=== PATIENT | male | born 1945 | race Two or more races ===

== ENCOUNTER 2017-12-12 21:41 | Inpatient (IN) | payer OTHER ==
[2017-12-12] MEDS: SODIUM CHLORIDE 0.9% 1L BAG IV* (21:58)
[2017-12-12 23:18] LABS: ADD MAN DIFF? NO
[2017-12-12 23:20] LABS: BASOPHIL # 0.1 10^3/ul (0.0-0.1); BASOPHILS % 0.5 % (0.0-2.0); EOSINOPHILS # 0.1 10^3/ul (0.0-0.5); EOSINOPHILS % 0.5 % (0.0-7.0); HEMATOCRIT 35.7 % (42.0-52.0); HEMOGLOBIN 11.7 g/dl (14.0-18.0); LYMPHOCYTES # 1.1 10^3/ul (0.8-2.9); LYMPHOCYTES % 6.4 % (15.0-51.0); MEAN CORPUSCULAR HEMOGLOBIN 27.9 pg (29.0-33.0); MEAN CORPUSCULAR HGB CONC 32.8 g/dl (32.0-37.0); MEAN PLATELET VOLUME 10.1 fl (7.4-10.4); MONOCYTE # 1.2 10^3/ul (0.3-0.9); MONOCYTES % 7.4 % (0.0-11.0); NEUTROPHIL # 13.8 10^3/ul (1.6-7.5); NEUTROPHILS % 83.6 % (39.0-77.0); PLATELET COUNT 402 10^3/UL (140-415); RED CELL DISTRIBUTION WIDTH 16.4 % (11.5-14.5)
[2017-12-12 23:20] LABS: WHITE BLOOD COUNT 16.5 10^3/ul (4.8-10.8)
[2017-12-12 23:48] LABS: ALANINE AMINOTRANSFERASE 31 IU/L (13-69); ALBUMIN 3.7 g/dl (3.3-4.9); ALBUMIN/GLOBULIN RATIO 1.08; ALKALINE PHOSPHATASE 133 IU/L (42-121); ANION GAP 14 (8-16); ASPARTATE AMINO TRANSFERASE 40 IU/L (15-46); BILIRUBIN,INDIRECT 0.1 mg/dl (0-1.1); BILIRUBIN,TOTAL 0.1 mg/dl (0.2-1.3); BLOOD UREA NITROGEN 37 mg/dl (7-20); CARBON DIOXIDE 35 mmol/L (21-31); CHLORIDE 91 mmol/L (97-110); CREATININE 1.96 mg/dl (0.61-1.24); GLUCOSE 267 mg/dl (70-220); POTASSIUM 3.3 mmol/L (3.5-5.1); SODIUM 137 mmol/L (135-144); TOTAL PROTEIN 7.1 g/dl (6.1-8.1)
[2017-12-12 23:52] LABS: INR 0.96; PARTIAL THROMBOPLASTIN TIME 31.5 Sec (25.0-35.0); PROTIME 12.9 Sec (11.9-14.9)
[2017-12-12 23:54] LABS: LACTIC ACID 2.2 mmol/L (0.5-2.0)
[2017-12-12 23:58] LABS: TROPONIN-I 0.024 ng/ml (0.00-0.12)
[2017-12-13 00:06] LABS: ADD UMIC NO; UR ASCORBIC ACID NEGATIVE (NEGATIVE); UR BILIRUBIN (Dip) NEGATIVE (NEGATIVE); UR BLOOD (Dip) NEGATIVE (NEGATIVE); UR CLARITY CLEAR (CLEAR); UR COLOR STRAW (YELLOW); UR GLUCOSE (Dip) NEGATIVE (NEGATIVE); UR KETONES (Dip) NEGATIVE (NEGATIVE); UR LEUKOCYTE ESTERASE (Dip) NEGATIVE Leu/ul (NEGATIVE); UR NITRITE (Dip) NEGATIVE (NEGATIVE); UR SPECIFIC GRAVITY (Dip) 1.006 (1.003-1.030); UR TOTAL PROTEIN (Dip) NEGATIVE (NEGATIVE); UR UROBILINOGEN (Dip) NEGATIVE (NEGATIVE)
[2017-12-13 00:55] LABS: LACTIC ACID 1.7 mmol/L (0.5-2.0)
[2017-12-13] MEDS: VANCOMYCIN 1 GM (PMX) 250 ML IVPB (00:56)
[2017-12-13] MEDS: CEFEPIME 2GM/50 ML (PMX) 50 ML IVPB (00:56)
[2017-12-13] MEDS: SOD CHLORIDE 0.9% 1,000 ML IV ×4 (02:33→22:33)
[2017-12-13] MEDS: ONDANSETRON 4 MG INJ IV ×2 (02:51→13:43)
[2017-12-13] MEDS: morphine 4 MG/ML VIAL IV (02:52)
[2017-12-13] MEDS ORDERED: NACL 0.9% 3 ML SYG IV (03:00)
[2017-12-13] MEDS ORDERED: VANCOMYCIN IV PER PHARMACY XX (03:00)
[2017-12-13] MEDS ORDERED: LORAZEPAM 2 MG INJ IV (03:00)
[2017-12-13] MEDS ORDERED: POTASSIUM CHLORIDE 50 ML IVPB (03:00)
[2017-12-13] MEDS ORDERED: ACETAMINOPHEN 325 MG TAB PO (03:00)
[2017-12-13] MEDS ORDERED: ZOLPIDEM 5 MG TAB PO (03:00)
[2017-12-13] MEDS ORDERED: GLUCOSE GEL 15 GRAM TUBE BUCCAL (04:00)
[2017-12-13] MEDS ORDERED: GLUCAGON 1 MG INJ IM (04:00)
[2017-12-13] MEDS ORDERED: GLUCOSE GEL 15 GRAM TUBE PO ×2 (04:00)
[2017-12-13] MEDS ORDERED: DEXTROSE 50% 50 ML SYRINGE IV ×2 (04:00)
[2017-12-13] MEDS: PIPER-TAZO 2.25 GM (PMX) 50 ML IVPB ×3 (04:42→19:14)
[2017-12-13] MEDS ORDERED: PIPER-TAZO 3.375 GM IV (PMX) 100 ML IVPB (06:00)
[2017-12-13] MEDS ORDERED: MEROPENEM 1 GM/50ML(PMX) 50 ML IVPB (06:00)
[2017-12-13] MEDS: VANCOMYCIN 1 GM in 250 ML IVPB (07:28)
[2017-12-13] MEDS: SOD CHLORIDE 0.9% 500 ML IV (07:28)
[2017-12-13] MEDS: INSULIN ASPART [NOVOLOG] 3 ML PEN SC ×3 (08:00→21:00)
[2017-12-13 08:33] LABS: ADD UMIC YES; UR ASCORBIC ACID NEGATIVE (NEGATIVE); UR BILIRUBIN (Dip) NEGATIVE (NEGATIVE); UR BLOOD (Dip) 1+ mg/dL (NEGATIVE); UR CLARITY CLEAR (CLEAR); UR COLOR YELLOW (YELLOW); UR GLUCOSE (Dip) 1+ mg/dL (NEGATIVE); UR KETONES (Dip) NEGATIVE (NEGATIVE); UR LEUKOCYTE ESTERASE (Dip) NEGATIVE Leu/ul (NEGATIVE); UR NITRITE (Dip) NEGATIVE (NEGATIVE); UR RBC 0 /HPF (0-5); UR SPECIFIC GRAVITY (Dip) 1.012 (1.003-1.030); UR TOTAL PROTEIN (Dip) NEGATIVE (NEGATIVE); UR UROBILINOGEN (Dip) NEGATIVE (NEGATIVE); UR WBC 3 /HPF (0-5)
[2017-12-13] MEDS: FAMOTIDINE 20 MG TAB PO (09:08)
[2017-12-13 09:13] LABS: LACTIC ACID 0.8 mmol/L (0.5-2.0)
[2017-12-13] MEDS: morphine 2 MG INJ IV ×3 (09:22→18:12)
[2017-12-13 12:18] LABS: AMPHETAMINE/METHAMPHETAMINE NEGATIVE (NEGATIVE); BARBITURATES NEGATIVE (NEGATIVE); BENZODIAZEPINES NEGATIVE (NEGATIVE)
[2017-12-13 12:19] LABS: CANNABINOIDS NEGATIVE (NEGATIVE); COCAINE NEGATIVE (NEGATIVE); OPIATES POSITIVE (NEGATIVE)
[2017-12-13] MEDS: DILTIAZEM (CD) 240 MG CAP PO (17:30)
[2017-12-13] MEDS: ISOSORBIDE MONONITRATE(SR)60 MG TAB PO (19:12)
[2017-12-13] MEDS: ALLOPURINOL 100 MG TAB PO (19:13)
[2017-12-13] MEDS: CLOPIDOGREL 75 MG TAB PO (19:13)
[2017-12-13] MEDS: FINASTERIDE 5 MG TAB PO (19:13)
[2017-12-13] MEDS: ATORVASTATIN 20 MG TAB PO (21:02)
[2017-12-13] MEDS: GABAPENTIN 300 MG CAP PO (21:02)
[2017-12-13] MEDS: KCL 30 MEQ in NS 250 ML IVPB X1 IVPB (21:02)
[2017-12-14] MEDS: PIPER-TAZO 2.25 GM (PMX) 50 ML IVPB ×4 (00:58→17:57)
[2017-12-14] MEDS: ACCU-CHEK XX (02:00)
[2017-12-14] MEDS: morphine 2 MG INJ IV ×4 (02:37→23:20)
[2017-12-14] MEDS: ONDANSETRON 4 MG INJ IV (02:38)
[2017-12-14] MEDS: SOD CHLORIDE 0.9% 1,000 ML IV ×3 (05:11→17:57)
[2017-12-14] MEDS: INSULIN ASPART [NOVOLOG] 3 ML PEN SC ×7 (07:55→20:57)
[2017-12-14] MEDS: FINASTERIDE 5 MG TAB PO (08:26)
[2017-12-14] MEDS: LOSARTAN 50 MG TAB PO (08:26)
[2017-12-14] MEDS: ALLOPURINOL 100 MG TAB PO (08:26)
[2017-12-14] MEDS: GABAPENTIN 300 MG CAP PO ×3 (08:26→20:51)
[2017-12-14] MEDS: CLOPIDOGREL 75 MG TAB PO (08:26)
[2017-12-14] MEDS: FAMOTIDINE 20 MG TAB PO (08:27)
[2017-12-14] MEDS: FUROSEMIDE 40 MG TAB PO (08:27)
[2017-12-14] MEDS: ISOSORBIDE MONONITRATE(SR)60 MG TAB PO (08:27)
[2017-12-14] MEDS: DILTIAZEM (CD) 240 MG CAP PO (08:27)
[2017-12-14] MEDS: VANCOMYCIN 1.25 GM in SOD CHLORIDE 0.9% 250 ML IVPB (08:38)
[2017-12-14 09:16] LABS: ADD MAN DIFF? NO
[2017-12-14 09:22] LABS: BASOPHIL # 0.1 10^3/ul (0.0-0.1); BASOPHILS % 0.8 % (0.0-2.0); EOSINOPHILS # 0.2 10^3/ul (0.0-0.5); EOSINOPHILS % 1.5 % (0.0-7.0); HEMATOCRIT 32.8 % (42.0-52.0); HEMOGLOBIN 10.4 g/dl (14.0-18.0); LYMPHOCYTES # 1.2 10^3/ul (0.8-2.9); MEAN CORPUSCULAR HEMOGLOBIN 27.4 pg (29.0-33.0); MEAN CORPUSCULAR HGB CONC 31.7 g/dl (32.0-37.0); MEAN CORPUSCULAR VOLUME 86.5 fl (82.0-101.0); MEAN PLATELET VOLUME 10.1 fl (7.4-10.4); MONOCYTE # 1.2 10^3/ul (0.3-0.9); MONOCYTES % 10.2 % (0.0-11.0); NEUTROPHIL # 8.5 10^3/ul (1.6-7.5); PLATELET COUNT 380 10^3/UL (140-415); RED BLOOD COUNT 3.79 10^6/ul (4.70-6.10); RED CELL DISTRIBUTION WIDTH 16.3 % (11.5-14.5)
[2017-12-14 09:22] LABS: WHITE BLOOD COUNT 11.3 10^3/ul (4.8-10.8)
[2017-12-14 09:44] LABS: ALANINE AMINOTRANSFERASE 32 IU/L (13-69); ALBUMIN 3.4 g/dl (3.3-4.9); ALBUMIN/GLOBULIN RATIO 1.06; ALKALINE PHOSPHATASE 110 IU/L (42-121); ANION GAP 12 (8-16); ASPARTATE AMINO TRANSFERASE 35 IU/L (15-46); BILIRUBIN,INDIRECT 0.2 mg/dl (0-1.1); BILIRUBIN,TOTAL 0.2 mg/dl (0.2-1.3); BLOOD UREA NITROGEN 22 mg/dl (7-20); CALCIUM 8.5 mg/dl (8.4-10.2); CARBON DIOXIDE 33 mmol/L (21-31); CHLORIDE 99 mmol/L (97-110); CHOL/HDL RATIO 3.2 RATIO; CHOLESTEROL 129 mg/dl (100-200); GLUCOSE 126 mg/dl (70-220); HDL CHOLESTEROL 40 mg/dl (31-75); LDL CHOLESTEROL,CALCULATED 67 mg/dl; MAGNESIUM 1.8 mg/dl (1.7-2.5); SODIUM 141 mmol/L (135-144); TOTAL PROTEIN 6.6 g/dl (6.1-8.1); TRIGLYCERIDES 108 mg/dl (0-149)
[2017-12-14 09:54] LABS: POTASSIUM 2.9 mmol/L (3.5-5.1)
[2017-12-14] MEDS: KCL 30 MEQ in NS 250 ML IVPB X1 IVPB (11:58)
[2017-12-14 12:00] LABS: PROSTATE SPECIFIC ANTIGEN 3.3 ng/ml (0.0-4.0)
[2017-12-14] MEDS: CHOLECALCIFEROL 1,000 UNIT TAB PO (13:33)
[2017-12-14 20:29] LABS: IMMUNOGLOBULIN A 199 mg/dl (70-400); IMMUNOGLOBULIN G 996 mg/dl (700-1600); IMMUNOGLOBULIN M 38 mg/dl (40-230)
[2017-12-14] MEDS: TERAZOSIN 1 MG CAP PO (20:51)
[2017-12-14] MEDS: ATORVASTATIN 20 MG TAB PO (20:51)
[2017-12-15] MEDS: PIPER-TAZO 2.25 GM (PMX) 50 ML IVPB ×2 (01:15→05:24)
[2017-12-15] MEDS: ACCU-CHEK XX (02:00)
[2017-12-15] MEDS: SOD CHLORIDE 0.9% 1,000 ML IV ×3 (04:33→20:00)
[2017-12-15] MEDS: morphine 2 MG INJ IV ×3 (05:11→17:48)
[2017-12-15] MEDS: INSULIN ASPART [NOVOLOG] 3 ML PEN SC ×7 (07:55→20:54)
[2017-12-15] MEDS: DILTIAZEM (CD) 240 MG CAP PO (08:14)
[2017-12-15] MEDS: LOSARTAN 50 MG TAB PO (08:15)
[2017-12-15] MEDS: FUROSEMIDE 40 MG TAB PO (08:15)
[2017-12-15] MEDS: ISOSORBIDE MONONITRATE(SR)60 MG TAB PO (08:15)
[2017-12-15] MEDS: CHOLECALCIFEROL 1,000 UNIT TAB PO (08:16)
[2017-12-15] MEDS: FAMOTIDINE 20 MG TAB PO (08:16)
[2017-12-15] MEDS: FINASTERIDE 5 MG TAB PO (08:16)
[2017-12-15] MEDS: GABAPENTIN 300 MG CAP PO ×3 (08:16→20:40)
[2017-12-15] MEDS: ALLOPURINOL 100 MG TAB PO (08:16)
[2017-12-15] MEDS: CLOPIDOGREL 75 MG TAB PO (08:16)
[2017-12-15] MEDS: VANCOMYCIN 1.25 GM in SOD CHLORIDE 0.9% 250 ML IVPB (08:19)
[2017-12-15] MEDS: LIDOCAINE 1% (MDV) 10 ML INJ ×2 (12:25)
[2017-12-15] MEDS: MIDAZOLAM 1 MG/ML 2 ML INJ (13:07)
[2017-12-15] MEDS: FENTAnyl 50 MCG/ML VIAL (13:08)
[2017-12-15] MEDS: SOD CHLORIDE 0.9% 500 ML (13:09)
[2017-12-15 15:16] LABS: ADD MAN DIFF? NO
[2017-12-15 15:20] LABS: WHITE BLOOD COUNT 10.1 10^3/ul (4.8-10.8)
[2017-12-15 15:20] LABS: BASOPHIL # 0.1 10^3/ul (0.0-0.1); BASOPHILS % 0.8 % (0.0-2.0); EOSINOPHILS # 0.1 10^3/ul (0.0-0.5); EOSINOPHILS % 1.1 % (0.0-7.0); HEMATOCRIT 33.4 % (42.0-52.0); HEMOGLOBIN 10.7 g/dl (14.0-18.0); LYMPHOCYTES # 1.2 10^3/ul (0.8-2.9); LYMPHOCYTES % 12.2 % (15.0-51.0); MEAN CORPUSCULAR HEMOGLOBIN 27.6 pg (29.0-33.0); MEAN CORPUSCULAR VOLUME 86.1 fl (82.0-101.0); MEAN PLATELET VOLUME 9.9 fl (7.4-10.4); MONOCYTE # 0.9 10^3/ul (0.3-0.9); MONOCYTES % 8.7 % (0.0-11.0); NEUTROPHIL # 7.7 10^3/ul (1.6-7.5); NEUTROPHILS % 76.1 % (39.0-77.0); PLATELET COUNT 377 10^3/UL (140-415); RED BLOOD COUNT 3.88 10^6/ul (4.70-6.10); RED CELL DISTRIBUTION WIDTH 16.5 % (11.5-14.5)
[2017-12-15 15:45] LABS: ANION GAP 17 (8-16); BLOOD UREA NITROGEN 18 mg/dl (7-20); CALCIUM 9.1 mg/dl (8.4-10.2); CARBON DIOXIDE 29 mmol/L (21-31); CHLORIDE 99 mmol/L (97-110); CREATININE 1.25 mg/dl (0.61-1.24); GLUCOSE 176 mg/dl (70-220); POTASSIUM 3.9 mmol/L (3.5-5.1); SODIUM 141 mmol/L (135-144)
[2017-12-15] MEDS: TERAZOSIN 1 MG CAP PO (20:40)
[2017-12-15] MEDS: ATORVASTATIN 20 MG TAB PO (20:40)
[2017-12-16] MEDS: SOD CHLORIDE 0.9% 1,000 ML IV ×3 (00:33→21:04)
[2017-12-16] MEDS: ACCU-CHEK XX (02:00)
[2017-12-16] MEDS: morphine 2 MG INJ IV ×2 (02:10→08:50)
[2017-12-16] MEDS: CLOPIDOGREL 75 MG TAB PO (08:41)
[2017-12-16] MEDS: GABAPENTIN 300 MG CAP PO ×3 (08:41→20:59)
[2017-12-16] MEDS: CHOLECALCIFEROL 1,000 UNIT TAB PO (08:42)
[2017-12-16] MEDS: FINASTERIDE 5 MG TAB PO (08:42)
[2017-12-16] MEDS: DILTIAZEM (CD) 240 MG CAP PO (08:42)
[2017-12-16] MEDS: FAMOTIDINE 20 MG TAB PO (08:42)
[2017-12-16] MEDS: ALLOPURINOL 100 MG TAB PO (08:43)
[2017-12-16] MEDS: LOSARTAN 50 MG TAB PO (08:43)
[2017-12-16] MEDS: FUROSEMIDE 40 MG TAB PO (08:43)
[2017-12-16] MEDS: ISOSORBIDE MONONITRATE(SR)60 MG TAB PO (08:43)
[2017-12-16] MEDS: INSULIN ASPART [NOVOLOG] 3 ML PEN SC ×7 (08:48→21:00)
[2017-12-16 10:51] LABS: ADD MAN DIFF? NO
[2017-12-16 11:24] LABS: WHITE BLOOD COUNT 8.6 10^3/ul (4.8-10.8)
[2017-12-16 11:24] LABS: BASOPHIL # 0.1 10^3/ul (0.0-0.1); BASOPHILS % 0.7 % (0.0-2.0); EOSINOPHILS # 0.1 10^3/ul (0.0-0.5); EOSINOPHILS % 1.6 % (0.0-7.0); HEMOGLOBIN 10.2 g/dl (14.0-18.0); LYMPHOCYTES % 12.1 % (15.0-51.0); MEAN CORPUSCULAR HEMOGLOBIN 28.4 pg (29.0-33.0); MEAN CORPUSCULAR HGB CONC 32.9 g/dl (32.0-37.0); MEAN CORPUSCULAR VOLUME 86.4 fl (82.0-101.0); MEAN PLATELET VOLUME 9.7 fl (7.4-10.4); MONOCYTE # 0.8 10^3/ul (0.3-0.9); MONOCYTES % 9.3 % (0.0-11.0); NEUTROPHIL # 6.5 10^3/ul (1.6-7.5); NEUTROPHILS % 75.5 % (39.0-77.0); PLATELET COUNT 353 10^3/UL (140-415); RED BLOOD COUNT 3.59 10^6/ul (4.70-6.10); RED CELL DISTRIBUTION WIDTH 16.2 % (11.5-14.5)
[2017-12-16 11:43] LABS: ALANINE AMINOTRANSFERASE 27 IU/L (13-69); ALBUMIN 3.1 g/dl (3.3-4.9); ALBUMIN/GLOBULIN RATIO 0.88; ALKALINE PHOSPHATASE 106 IU/L (42-121); ANION GAP 11 (8-16); ASPARTATE AMINO TRANSFERASE 26 IU/L (15-46); BILIRUBIN,INDIRECT 0.1 mg/dl (0-1.1); BILIRUBIN,TOTAL 0.1 mg/dl (0.2-1.3); BLOOD UREA NITROGEN 17 mg/dl (7-20); CALCIUM 8.9 mg/dl (8.4-10.2); CARBON DIOXIDE 33 mmol/L (21-31); CHLORIDE 100 mmol/L (97-110); GLUCOSE 216 mg/dl (70-220); MAGNESIUM 1.7 mg/dl (1.7-2.5); POTASSIUM 3.2 mmol/L (3.5-5.1); SODIUM 141 mmol/L (135-144); TOTAL PROTEIN 6.6 g/dl (6.1-8.1)
[2017-12-16] MEDS: DOCUSATE SODIUM 100 MG CAP PO (12:54)
[2017-12-16 13:52] LABS: IMMUNOGLOBULIN E 39 kU/L (<OR=114)
[2017-12-16] MEDS: morphine LIQ (10 MG/5 ML) CUP PO ×2 (15:40→20:59)
[2017-12-16 16:51] LABS: ABNORMAL PROTEIN BAND 1 0.1 g/dL (NONE DETECTED); ALBUMIN 2.7 g/dL (3.8-4.8); ALPHA-1-GLOBULINS 0.5 g/dL (0.2-0.3); ALPHA-2-GLOBULINS 1.2 g/dL (0.5-0.9); BETA 2 GLOBULINS 0.4 g/dL (0.2-0.5); BETA GLOBULINS 0.3 g/dL (0.4-0.6); GAMMA GLOBULINS 0.9 g/dL (0.8-1.7)
[2017-12-16] MEDS: POTASSIUM CHLORIDE (SR) 20 MEQ TAB PO (17:31)
[2017-12-16] MEDS: ENOXAPARIN 40 MG/0.4 ML SYG SC (17:31)
[2017-12-16 17:48] LABS: IRON 28 ug/dl (35-150)
[2017-12-16 17:57] LABS: % IRON SATURATION 18 % SAT (22-52); TOTAL IRON BINDING CAPACITY 152 ug/dl (241-421)
[2017-12-16] MEDS: ATORVASTATIN 20 MG TAB PO (20:59)
[2017-12-16] MEDS: TERAZOSIN 1 MG CAP PO (20:59)
[2017-12-17] MEDS: ACCU-CHEK XX (02:00)
[2017-12-17] MEDS: SOD CHLORIDE 0.9% 1,000 ML IV ×2 (06:33→17:03)
[2017-12-17 07:03] LABS: ADD MAN DIFF? NO
[2017-12-17 07:09] LABS: BASOPHIL # 0.1 10^3/ul (0.0-0.1); BASOPHILS % 0.8 % (0.0-2.0); EOSINOPHILS # 0.1 10^3/ul (0.0-0.5); EOSINOPHILS % 1.4 % (0.0-7.0); HEMATOCRIT 29.1 % (42.0-52.0); HEMOGLOBIN 9.4 g/dl (14.0-18.0); LYMPHOCYTES # 1.3 10^3/ul (0.8-2.9); LYMPHOCYTES % 15.2 % (15.0-51.0); MEAN CORPUSCULAR HEMOGLOBIN 27.9 pg (29.0-33.0); MEAN CORPUSCULAR HGB CONC 32.3 g/dl (32.0-37.0); MEAN CORPUSCULAR VOLUME 86.4 fl (82.0-101.0); MONOCYTE # 0.9 10^3/ul (0.3-0.9); MONOCYTES % 10.3 % (0.0-11.0); NEUTROPHIL # 6.1 10^3/ul (1.6-7.5); NEUTROPHILS % 71.6 % (39.0-77.0); PLATELET COUNT 345 10^3/UL (140-415); RED BLOOD COUNT 3.37 10^6/ul (4.70-6.10); RED CELL DISTRIBUTION WIDTH 16.7 % (11.5-14.5)
[2017-12-17 07:09] LABS: WHITE BLOOD COUNT 8.6 10^3/ul (4.8-10.8)
[2017-12-17 07:30] LABS: ALANINE AMINOTRANSFERASE 30 IU/L (13-69); ALBUMIN 3.2 g/dl (3.3-4.9); ALBUMIN/GLOBULIN RATIO 1.06; ALKALINE PHOSPHATASE 107 IU/L (42-121); ANION GAP 14 (8-16); ASPARTATE AMINO TRANSFERASE 25 IU/L (15-46); BLOOD UREA NITROGEN 16 mg/dl (7-20); CALCIUM 8.8 mg/dl (8.4-10.2); CARBON DIOXIDE 32 mmol/L (21-31); CHLORIDE 99 mmol/L (97-110); CREATININE 1.16 mg/dl (0.61-1.24); GLUCOSE 244 mg/dl (70-220); POTASSIUM 3.5 mmol/L (3.5-5.1); SODIUM 141 mmol/L (135-144); TOTAL PROTEIN 6.2 g/dl (6.1-8.1)
[2017-12-17 07:31] LABS: MAGNESIUM 1.6 mg/dl (1.7-2.5)
[2017-12-17] MEDS: DILTIAZEM (CD) 240 MG CAP PO (08:46)
[2017-12-17] MEDS: CLOPIDOGREL 75 MG TAB PO (08:47)
[2017-12-17] MEDS: FUROSEMIDE 40 MG TAB PO (08:47)
[2017-12-17] MEDS: LOSARTAN 50 MG TAB PO (08:47)
[2017-12-17] MEDS: FAMOTIDINE 20 MG TAB PO (08:47)
[2017-12-17] MEDS: ISOSORBIDE MONONITRATE(SR)60 MG TAB PO (08:47)
[2017-12-17] MEDS: ALLOPURINOL 100 MG TAB PO (08:47)
[2017-12-17] MEDS: GABAPENTIN 300 MG CAP PO ×3 (08:47→20:32)
[2017-12-17] MEDS: CHOLECALCIFEROL 1,000 UNIT TAB PO (08:48)
[2017-12-17] MEDS: FINASTERIDE 5 MG TAB PO (08:48)
[2017-12-17] MEDS: ENOXAPARIN 40 MG/0.4 ML SYG SC (08:56)
[2017-12-17] MEDS: INSULIN ASPART [NOVOLOG] 3 ML PEN SC ×7 (08:56→20:34)
[2017-12-17] MEDS: IOHEXOL 14.3 MG(I)/ML (ADULT) BTL PO (09:28)
[2017-12-17] MEDS: IOHEXOL 300MG/ML 150 ML BTL (11:29)
[2017-12-17] MEDS: POTASSIUM CHLORIDE (SR) 20 MEQ TAB PO (11:29)
[2017-12-17] MEDS: SOD CHLORIDE 0.9% 100 ML (11:29)
[2017-12-17] MEDS: MAGNESIUM SULFATE 2 GM/50 ML 50 ML IVPB (11:30)
[2017-12-17] MEDS: HYDROCODONE/APAP (5/325) TAB PO (15:25)
[2017-12-17] MEDS: ATORVASTATIN 20 MG TAB PO (20:32)
[2017-12-17] MEDS: TERAZOSIN 1 MG CAP PO (20:32)
[2017-12-17] MEDS: morphine LIQ (10 MG/5 ML) CUP PO (20:35)
[2017-12-18] MEDS: ACCU-CHEK XX (02:00)
[2017-12-18] MEDS: SOD CHLORIDE 0.9% 1,000 ML IV ×2 (03:19→13:08)
[2017-12-18] MEDS: INSULIN ASPART [NOVOLOG] 3 ML PEN SC ×7 (08:35→21:00)
[2017-12-18] MEDS: FAMOTIDINE 20 MG TAB PO (09:41)
[2017-12-18] MEDS: LOSARTAN 50 MG TAB PO (09:41)
[2017-12-18] MEDS: CHOLECALCIFEROL 1,000 UNIT TAB PO (09:42)
[2017-12-18] MEDS: ISOSORBIDE MONONITRATE(SR)60 MG TAB PO (09:42)
[2017-12-18] MEDS: CLOPIDOGREL 75 MG TAB PO (09:42)
[2017-12-18] MEDS: ALLOPURINOL 100 MG TAB PO (09:43)
[2017-12-18] MEDS: DILTIAZEM (CD) 240 MG CAP PO (09:43)
[2017-12-18] MEDS: FINASTERIDE 5 MG TAB PO (09:43)
[2017-12-18] MEDS: FUROSEMIDE 40 MG TAB PO (09:43)
[2017-12-18] MEDS: GABAPENTIN 300 MG CAP PO ×3 (09:43→21:40)
[2017-12-18] MEDS: ENOXAPARIN 40 MG/0.4 ML SYG SC (10:04)
[2017-12-18] MEDS: POLYETHYLENE GLYCOL 17 GM PACKET PO (13:08)
[2017-12-18 13:43] LABS: ADD MAN DIFF? NO
[2017-12-18 13:47] LABS: WHITE BLOOD COUNT 9.4 10^3/ul (4.8-10.8)
[2017-12-18 13:47] LABS: BASOPHIL # 0.1 10^3/ul (0.0-0.1); BASOPHILS % 0.9 % (0.0-2.0); EOSINOPHILS # 0.2 10^3/ul (0.0-0.5); EOSINOPHILS % 1.6 % (0.0-7.0); HEMATOCRIT 32.5 % (42.0-52.0); HEMOGLOBIN 10.4 g/dl (14.0-18.0); LYMPHOCYTES # 1.1 10^3/ul (0.8-2.9); MEAN CORPUSCULAR VOLUME 87.4 fl (82.0-101.0); MEAN PLATELET VOLUME 9.6 fl (7.4-10.4); MONOCYTE # 0.8 10^3/ul (0.3-0.9); MONOCYTES % 8.2 % (0.0-11.0); NEUTROPHIL # 7.2 10^3/ul (1.6-7.5); NEUTROPHILS % 76.6 % (39.0-77.0); PLATELET COUNT 383 10^3/UL (140-415); RED BLOOD COUNT 3.72 10^6/ul (4.70-6.10); RED CELL DISTRIBUTION WIDTH 16.6 % (11.5-14.5)
[2017-12-18 14:08] LABS: ANION GAP 13 (8-16); BLOOD UREA NITROGEN 14 mg/dl (7-20); CALCIUM 9.1 mg/dl (8.4-10.2); CARBON DIOXIDE 36 mmol/L (21-31); CHLORIDE 98 mmol/L (97-110); GLUCOSE 204 mg/dl (70-220); SODIUM 143 mmol/L (135-144)
[2017-12-18] MEDS: morphine LIQ (10 MG/5 ML) CUP PO (18:42)
[2017-12-18] MEDS: ATORVASTATIN 20 MG TAB PO (21:40)
[2017-12-18] MEDS: TERAZOSIN 1 MG CAP PO (21:41)
[2017-12-19] MEDS: ACCU-CHEK XX (02:00)
[2017-12-19] MEDS: SOD CHLORIDE 0.9% 1,000 ML IV ×3 (02:00→17:32)
[2017-12-19 06:11] LABS: ADD MAN DIFF? NO
[2017-12-19 06:20] LABS: BASOPHIL # 0.1 10^3/ul (0.0-0.1); EOSINOPHILS # 0.1 10^3/ul (0.0-0.5); EOSINOPHILS % 1.6 % (0.0-7.0); HEMATOCRIT 29.9 % (42.0-52.0); HEMOGLOBIN 9.5 g/dl (14.0-18.0); LYMPHOCYTES % 12.4 % (15.0-51.0); MEAN CORPUSCULAR HEMOGLOBIN 27.5 pg (29.0-33.0); MEAN CORPUSCULAR HGB CONC 31.8 g/dl (32.0-37.0); MEAN CORPUSCULAR VOLUME 86.4 fl (82.0-101.0); MEAN PLATELET VOLUME 9.8 fl (7.4-10.4); MONOCYTE # 0.7 10^3/ul (0.3-0.9); MONOCYTES % 8.7 % (0.0-11.0); NEUTROPHIL # 6.2 10^3/ul (1.6-7.5); NEUTROPHILS % 75.6 % (39.0-77.0); PLATELET COUNT 335 10^3/UL (140-415); RED BLOOD COUNT 3.46 10^6/ul (4.70-6.10); RED CELL DISTRIBUTION WIDTH 16.4 % (11.5-14.5)
[2017-12-19 06:20] LABS: WHITE BLOOD COUNT 8.2 10^3/ul (4.8-10.8)
[2017-12-19 06:42] LABS: MAGNESIUM 1.8 mg/dl (1.7-2.5)
[2017-12-19] MEDS: INSULIN ASPART [NOVOLOG] 3 ML PEN SC ×4 (07:55→17:31)
[2017-12-19] MEDS: DILTIAZEM (CD) 240 MG CAP PO (09:00)
[2017-12-19] MEDS: FAMOTIDINE 20 MG TAB PO (09:00)
[2017-12-19] MEDS: POLYETHYLENE GLYCOL 17 GM PACKET PO (09:00)
[2017-12-19] MEDS: CHOLECALCIFEROL 1,000 UNIT TAB PO (09:00)
[2017-12-19] MEDS: ALLOPURINOL 100 MG TAB PO (09:00)
[2017-12-19] MEDS: ISOSORBIDE MONONITRATE(SR)60 MG TAB PO (09:00)
[2017-12-19] MEDS: CLOPIDOGREL 75 MG TAB PO (09:00)
[2017-12-19] MEDS: LOSARTAN 50 MG TAB PO (09:00)
[2017-12-19] MEDS: GABAPENTIN 300 MG CAP PO ×2 (09:00→12:44)
[2017-12-19] MEDS: FUROSEMIDE 40 MG TAB PO (09:00)
[2017-12-19] MEDS: FINASTERIDE 5 MG TAB PO (09:00)
[2017-12-19 11:14] LABS: ANION GAP 13 (8-16); BLOOD UREA NITROGEN 15 mg/dl (7-20); CARBON DIOXIDE 32 mmol/L (21-31); CHLORIDE 100 mmol/L (97-110); CREATININE 0.96 mg/dl (0.61-1.24); GLUCOSE 289 mg/dl (70-220); POTASSIUM 3.8 mmol/L (3.5-5.1); SODIUM 141 mmol/L (135-144)
[2017-12-19] MEDS: morphine LIQ (10 MG/5 ML) CUP PO (18:35)
[2017-12-19] MEDS ORDERED: INSULIN GLARGINE [LANtus] 3 ML PEN SC (20:00)
[2017-12-20 21:27] LABS: IMMUNOGLOBULIN D <1 mg/L (<179)
== END 2017-12-19 20:26 | disposition home health service (06) | DRG 853 ==
LOC: E/R 21:41 → TEL 12-13 02:37
PROC: 0QB33ZX Excision of Left Pelvic Bone, Percutaneous Approach, Diagnostic (ICD-10-PCS; principal; 2017-12-15)
PROC: 07DR3ZX Extraction of Iliac Bone Marrow, Percutaneous Approach, Diagnostic (ICD-10-PCS; 2017-12-15)
DX: A41.9 Sepsis, unspecified organism (principal); G93.41 Metabolic encephalopathy; N39.0 Urinary tract infection, site not specified; N17.9 Acute kidney failure, unspecified; Z68.41 Body mass index [BMI] 40.0-44.9, adult; C79.51 Secondary malignant neoplasm of bone; E86.0 Dehydration; E86.1 Hypovolemia; E78.5 Hyperlipidemia, unspecified; Z95.0 Presence of cardiac pacemaker; D47.2 Monoclonal gammopathy; E11.22 Type 2 diabetes mellitus with diabetic chronic kidney disease; N18.9 Chronic kidney disease, unspecified; E87.6 Hypokalemia; N40.0 Benign prostatic hyperplasia without lower urinary tract symptoms; E66.01 Morbid (severe) obesity due to excess calories; M25.561 Pain in right knee; Z91.81 History of falling; D64.9 Anemia, unspecified; I13.10 Hypertensive heart and chronic kidney disease without heart failure, with stage 1 through stage 4 chronic kidney disease, or unspecified chronic kidney disease; C80.1 Malignant (primary) neoplasm, unspecified
CPT/HCPCS: 70450; 71045; 71260; 74177; 77012; 77075; 80048; 80053; 80061; 80307; 81001; 81003; 82607; 82746; 82784; 82785; 82962; 83036; 83540; 83605; 83735; 84153; 84154; 84155; 84165; 84484; 85025; 85610; 85730; 86320; 87040; 87086; 87400; 88305; 88311; 88313; 88341; 88342; 93005; 96365; 96366; 96367; 96368; 96375; 96376; 97110; 97116; 97162; 97530; 99291-25

== ENCOUNTER 2018-02-11 09:35 | Inpatient (IN) | payer OTHER ==
[2018-02-11] MEDS ORDERED: NITROGLYCERIN (SL) 0.4 MG TAB SL ×2 (10:00→15:00)
[2018-02-11] MEDS: FUROSEMIDE 40 MG INJ IV ×2 (10:17→18:39)
[2018-02-11] MEDS: NITROGLYCERIN 2% 1 GM OINT PKT TD (10:17)
[2018-02-11 10:30] LABS: ADD MAN DIFF? NO
[2018-02-11 10:40] LABS: WHITE BLOOD COUNT 13.3 10^3/ul (4.8-10.8)
[2018-02-11 10:40] LABS: ABNORMAL IP MESSAGE 1; BASOPHIL # 0.1 10^3/ul (0.0-0.1); BASOPHILS % 0.8 % (0.0-2.0); EOSINOPHILS # 0.1 10^3/ul (0.0-0.5); EOSINOPHILS % 0.5 % (0.0-7.0); HEMOGLOBIN 9.2 g/dl (14.0-18.0); LYMPHOCYTES # 0.5 10^3/ul (0.8-2.9); LYMPHOCYTES % 3.7 % (15.0-51.0); MEAN CORPUSCULAR HEMOGLOBIN 27.5 pg (29.0-33.0); MEAN CORPUSCULAR HGB CONC 31.7 g/dl (32.0-37.0); MEAN CORPUSCULAR VOLUME 86.8 fl (82.0-101.0); MEAN PLATELET VOLUME 9.5 fl (7.4-10.4); MONOCYTES % 7.2 % (0.0-11.0); NEUTROPHIL # 10.8 10^3/ul (1.6-7.5); NEUTROPHILS % 81.5 % (39.0-77.0); PLATELET COUNT 317 10^3/UL (140-415); POSITIVE DIFF @See below; RED BLOOD COUNT 3.34 10^6/ul (4.70-6.10); RED CELL DISTRIBUTION WIDTH 18.9 % (11.5-14.5)
[2018-02-11 11:00] LABS: ANION GAP 12 (8-16); BLOOD UREA NITROGEN 14 mg/dl (7-20); CALCIUM 8.7 mg/dl (8.4-10.2); CARBON DIOXIDE 29 mmol/L (21-31); CHLORIDE 103 mmol/L (97-110); CREATININE 0.96 mg/dl (0.61-1.24); GLUCOSE 132 mg/dl (70-220); POTASSIUM 4.2 mmol/L (3.5-5.1); SODIUM 140 mmol/L (135-144)
[2018-02-11 11:12] LABS: TROPONIN-I < 0.012 ng/ml (0.000-0.120)
[2018-02-11] MEDS ORDERED: ACETAMINOPHEN 325 MG TAB PO (13:00)
[2018-02-11 14:20] LABS: B-TYPE NATRIURETIC PEPTIDE 2550 PG/ML (0-125)
[2018-02-11] MEDS ORDERED: GLUCAGON 1 MG INJ IM (15:00)
[2018-02-11] MEDS ORDERED: DEXTROSE 50% 50 ML SYRINGE IV ×2 (15:00)
[2018-02-11] MEDS ORDERED: GLUCOSE GEL 15 GRAM TUBE PO ×2 (15:00)
[2018-02-11] MEDS ORDERED: GLUCOSE GEL 15 GRAM TUBE BUCCAL (15:00)
[2018-02-11] MEDS ORDERED: NACL 0.9% 3 ML SYG IV (15:00)
[2018-02-11] MEDS: morphine LIQ (10 MG/5 ML) CUP PO (16:34)
[2018-02-11 17:49] LABS: CREATINE KINASE 41 IU/L (23-200)
[2018-02-11 18:01] LABS: CK INDEX 2.4
[2018-02-11 18:02] LABS: CK-MB 0.99 ng/ml (0.0-2.4); TROPONIN-I < 0.012 ng/ml (0.000-0.120)
[2018-02-11] MEDS: INSULIN ASPART [NOVOLOG] 3 ML PEN SC ×2 (18:05→21:00)
[2018-02-11] MEDS: VANCOMYCIN HCL 250 MG/5ML POSYG PO ×2 (18:39→20:51)
[2018-02-11] MEDS: ONDANSETRON 4 MG INJ IV (19:27)
[2018-02-11] MEDS: morphine 4 MG/ML VIAL IV ×2 (19:27→23:01)
[2018-02-11] MEDS: TAMSULOSIN (SR) 0.4 MG CAP PO (20:51)
[2018-02-11] MEDS: TERAZOSIN 1 MG CAP PO (20:57)
[2018-02-11] MEDS: GABAPENTIN 300 MG CAP PO (20:57)
[2018-02-11] MEDS: HEPARIN 5,000 UNIT/0.5 ML VIAL SC (21:18)
[2018-02-11 23:17] LABS: CREATINE KINASE 38 IU/L (23-200)
[2018-02-11 23:30] LABS: CK INDEX 2.5
[2018-02-11 23:36] LABS: CK-MB 0.96 ng/ml (0.0-2.4); TROPONIN-I < 0.012 ng/ml (0.000-0.120)
[2018-02-12] MEDS: ACCU-CHEK XX (01:34)
[2018-02-12] MEDS: morphine 4 MG/ML VIAL IV ×4 (02:41→20:19)
[2018-02-12] MEDS: FUROSEMIDE 40 MG INJ IV ×2 (06:31→17:32)
[2018-02-12] MEDS: PANTOPRAZOLE (EC) 40 MG TAB PO (06:35)
[2018-02-12] MEDS: INSULIN GLARGINE [LANtus] 3 ML PEN SC ×2 (06:39→07:17)
[2018-02-12] MEDS: HEPARIN 5,000 UNIT/0.5 ML VIAL SC ×3 (06:40→22:44)
[2018-02-12] MEDS: ONDANSETRON 4 MG INJ IV ×2 (06:49→20:19)
[2018-02-12 06:53] LABS: ANION GAP 9 (8-16); BLOOD UREA NITROGEN 15 mg/dl (7-20); CALCIUM 8.3 mg/dl (8.4-10.2); CARBON DIOXIDE 33 mmol/L (21-31); CHLORIDE 103 mmol/L (97-110); CREATININE 0.94 mg/dl (0.61-1.24); GLUCOSE 134 mg/dl (70-220); POTASSIUM 3.5 mmol/L (3.5-5.1); SODIUM 141 mmol/L (135-144)
[2018-02-12] MEDS ORDERED: INSULIN GLARGINE [LANtus] 3 ML PEN SC (07:00)
[2018-02-12] MEDS: INSULIN ASPART [NOVOLOG] 3 ML PEN SC ×4 (08:00→20:26)
[2018-02-12] MEDS: GABAPENTIN 300 MG CAP PO ×4 (09:00→20:28)
[2018-02-12] MEDS ORDERED: DILTIAZEM (CD) 240 MG CAP PO (09:00)
[2018-02-12] MEDS: ASPIRIN 81 MG TAB PO (09:05)
[2018-02-12] MEDS: ALLOPURINOL 100 MG TAB PO (09:05)
[2018-02-12] MEDS: CLOPIDOGREL 75 MG TAB PO (09:05)
[2018-02-12] MEDS: FINASTERIDE 5 MG TAB PO (09:05)
[2018-02-12] MEDS: VANCOMYCIN HCL 250 MG/5ML POSYG PO ×4 (09:06→20:26)
[2018-02-12] MEDS: ISOSORBIDE MONONITRATE(SR)60 MG TAB PO (09:06)
[2018-02-12] MEDS: morphine LIQ (10 MG/5 ML) CUP PO ×2 (14:59→23:17)
[2018-02-12] MEDS: TERAZOSIN 1 MG CAP PO (20:27)
[2018-02-12] MEDS: TAMSULOSIN (SR) 0.4 MG CAP PO (20:27)
[2018-02-12] MEDS: ACETAMINOPHEN 325 MG TAB PO (22:28)
[2018-02-12] MEDS: DOCUSATE SODIUM 100 MG CAP PO (23:16)
[2018-02-12] MEDS: POLYETHYLENE GLYCOL 17 GM PACKET PO (23:16)
[2018-02-12] MEDS: SENNA TAB PO (23:16)
[2018-02-13] MEDS: morphine 4 MG/ML VIAL IV ×4 (01:02→21:19)
[2018-02-13] MEDS: ONDANSETRON 4 MG INJ IV ×3 (01:30→08:45)
[2018-02-13] MEDS: ACCU-CHEK XX (02:00)
[2018-02-13] MEDS ORDERED: morphine 4 MG/ML VIAL IV (03:30)
[2018-02-13] MEDS: FUROSEMIDE 40 MG INJ IV (06:33)
[2018-02-13] MEDS: PANTOPRAZOLE (EC) 40 MG TAB PO (06:33)
[2018-02-13] MEDS: HEPARIN 5,000 UNIT/0.5 ML VIAL SC ×3 (06:46→21:17)
[2018-02-13] MEDS: INSULIN ASPART [NOVOLOG] 3 ML PEN SC ×4 (08:00→21:00)
[2018-02-13] MEDS: CLOPIDOGREL 75 MG TAB PO (08:48)
[2018-02-13] MEDS: GABAPENTIN 300 MG CAP PO ×4 (08:48→21:18)
[2018-02-13] MEDS: FINASTERIDE 5 MG TAB PO (08:48)
[2018-02-13] MEDS: ASPIRIN 81 MG TAB PO (08:49)
[2018-02-13] MEDS: ALLOPURINOL 100 MG TAB PO (08:49)
[2018-02-13] MEDS: INSULIN GLARGINE [LANtus] 3 ML PEN SC (08:50)
[2018-02-13] MEDS: ISOSORBIDE MONONITRATE(SR)60 MG TAB PO (08:51)
[2018-02-13] MEDS: VANCOMYCIN HCL 250 MG/5ML POSYG PO ×4 (09:19→21:18)
[2018-02-13 09:20] LABS: ANION GAP 11 (8-16); BLOOD UREA NITROGEN 15 mg/dl (7-20); CALCIUM 8.1 mg/dl (8.4-10.2); CARBON DIOXIDE 35 mmol/L (21-31); CHLORIDE 97 mmol/L (97-110); CREATININE 1.06 mg/dl (0.61-1.24); GLUCOSE 101 mg/dl (70-220); POTASSIUM 3.1 mmol/L (3.5-5.1); SODIUM 140 mmol/L (135-144)
[2018-02-13 10:27] LABS: MAGNESIUM 1.5 mg/dl (1.7-2.5)
[2018-02-13] MEDS: POTASSIUM CHLORIDE (SR) 20 MEQ TAB PO ×2 (12:16→13:44)
[2018-02-13] MEDS: TAMSULOSIN (SR) 0.4 MG CAP PO (21:18)
[2018-02-13] MEDS: TERAZOSIN 1 MG CAP PO (21:18)
[2018-02-14] MEDS: ACCU-CHEK XX (02:00)
[2018-02-14] MEDS: HEPARIN 5,000 UNIT/0.5 ML VIAL SC ×2 (05:54→13:12)
[2018-02-14 07:41] LABS: ADD MAN DIFF? NO
[2018-02-14 07:47] LABS: WHITE BLOOD COUNT 9.9 10^3/ul (4.8-10.8)
[2018-02-14 07:47] LABS: ABNORMAL IP MESSAGE 1; BASOPHILS % 0.4 % (0.0-2.0); EOSINOPHILS # 0.1 10^3/ul (0.0-0.5); EOSINOPHILS % 0.7 % (0.0-7.0); HEMATOCRIT 27.9 % (42.0-52.0); HEMOGLOBIN 8.9 g/dl (14.0-18.0); LYMPHOCYTES # 0.5 10^3/ul (0.8-2.9); LYMPHOCYTES % 4.7 % (15.0-51.0); MEAN CORPUSCULAR HEMOGLOBIN 27.1 pg (29.0-33.0); MEAN CORPUSCULAR HGB CONC 31.9 g/dl (32.0-37.0); MEAN CORPUSCULAR VOLUME 85.1 fl (82.0-101.0); MEAN PLATELET VOLUME 9.5 fl (7.4-10.4); MONOCYTE # 0.8 10^3/ul (0.3-0.9); MONOCYTES % 7.7 % (0.0-11.0); NEUTROPHIL # 8.2 10^3/ul (1.6-7.5); NEUTROPHILS % 83.3 % (39.0-77.0); PLATELET COUNT 324 10^3/UL (140-415); POSITIVE DIFF @See below; RED BLOOD COUNT 3.28 10^6/ul (4.70-6.10); RED CELL DISTRIBUTION WIDTH 18.5 % (11.5-14.5)
[2018-02-14 08:07] LABS: PHOSPHORUS 3.2 mg/dl (2.5-4.9)
[2018-02-14 08:07] LABS: MAGNESIUM 1.5 mg/dl (1.7-2.5)
[2018-02-14 08:08] LABS: ANION GAP 9 (8-16); BLOOD UREA NITROGEN 12 mg/dl (7-20); CALCIUM 8.3 mg/dl (8.4-10.2); CARBON DIOXIDE 36 mmol/L (21-31); CHLORIDE 98 mmol/L (97-110); GLUCOSE 140 mg/dl (70-220); SODIUM 139 mmol/L (135-144)
[2018-02-14] MEDS: ASPIRIN 81 MG TAB PO (08:25)
[2018-02-14] MEDS: PANTOPRAZOLE (EC) 40 MG TAB PO (08:25)
[2018-02-14] MEDS: VANCOMYCIN HCL 250 MG/5ML POSYG PO ×3 (08:25→16:44)
[2018-02-14] MEDS: ISOSORBIDE MONONITRATE(SR)60 MG TAB PO (08:25)
[2018-02-14] MEDS: ALLOPURINOL 100 MG TAB PO (08:25)
[2018-02-14] MEDS: FINASTERIDE 5 MG TAB PO (08:26)
[2018-02-14] MEDS: GABAPENTIN 300 MG CAP PO ×2 (08:26→13:10)
[2018-02-14] MEDS: CLOPIDOGREL 75 MG TAB PO (08:26)
[2018-02-14] MEDS: FUROSEMIDE 40 MG INJ IV (08:27)
[2018-02-14] MEDS: INSULIN GLARGINE [LANtus] 3 ML PEN SC (08:34)
[2018-02-14] MEDS: INSULIN ASPART [NOVOLOG] 3 ML PEN SC ×2 (08:35→12:17)
[2018-02-14] MEDS: morphine 4 MG/ML VIAL IV ×2 (08:43→16:44)
[2018-02-14] MEDS: MAGNESIUM SULFATE 4 GM/100 ML 100 ML IVPB (11:19)
[2018-02-15] MEDS ORDERED: FUROSEMIDE 40 MG TAB PO (09:00)
== END 2018-02-14 18:00 | DRG 291 ==
LOC: MS4 12:43 → E/R 09:35 → MS4 12:43
DX: I50.33 Acute on chronic diastolic (congestive) heart failure (principal); L89.154 Pressure ulcer of sacral region, stage 4; C64.9 Malignant neoplasm of unspecified kidney, except renal pelvis; C78.02 Secondary malignant neoplasm of left lung; C78.01 Secondary malignant neoplasm of right lung; C79.51 Secondary malignant neoplasm of bone; A04.72 Enterocolitis due to Clostridium difficile, not specified as recurrent; Z51.5 Encounter for palliative care; I25.10 Atherosclerotic heart disease of native coronary artery without angina pectoris; E11.22 Type 2 diabetes mellitus with diabetic chronic kidney disease; N18.9 Chronic kidney disease, unspecified; Z95.0 Presence of cardiac pacemaker; Z66 Do not resuscitate; Z74.01 Bed confinement status; N40.1 Benign prostatic hyperplasia with lower urinary tract symptoms; R33.8 Other retention of urine
CPT/HCPCS: 36415; 71045; 80048; 82550; 82553; 82962; 83735; 83880; 84100; 84484; 85025; 87075; 87081; 96374; 99285-25; G0378

== ENCOUNTER 2018-03-08 14:49 | Inpatient (IN) | payer OTHER ==
[2018-03-08 16:14] LABS: URINE PH (Dip) POC 5.5 (5.0-8.5)
[2018-03-08 16:14] LABS: URINE BLOOD (Dip) POC Trace-intact (NEGATIVE); URINE GLUCOSE (Dip) POC Negative (NEGATIVE); URINE KETONES (Dip) POC Negative (NEGATIVE); URINE LEUKOCYTE EST (Dip) POC 2+ (NEGATIVE); URINE NITRITE (Dip) POC Positive (NEGATIVE); URINE TOTAL PROTEIN POC 2+ (NEGATIVE)
[2018-03-08 16:19] LABS: ADD MAN DIFF? NO
[2018-03-08 16:24] LABS: WHITE BLOOD COUNT 11.9 10^3/ul (4.8-10.8)
[2018-03-08 16:24] LABS: BASOPHIL # 0.1 10^3/ul (0.0-0.1); EOSINOPHILS # 0.2 10^3/ul (0.0-0.5); EOSINOPHILS % 1.5 % (0.0-7.0); HEMATOCRIT 33.7 % (42.0-52.0); HEMOGLOBIN 10.4 g/dl (14.0-18.0); LYMPHOCYTES # 1.2 10^3/ul (0.8-2.9); LYMPHOCYTES % 9.7 % (15.0-51.0); MEAN CORPUSCULAR HEMOGLOBIN 27.4 pg (29.0-33.0); MEAN CORPUSCULAR HGB CONC 30.9 g/dl (32.0-37.0); MEAN CORPUSCULAR VOLUME 88.7 fl (82.0-101.0); MEAN PLATELET VOLUME 9.4 fl (7.4-10.4); MONOCYTES % 8.5 % (0.0-11.0); NEUTROPHIL # 9.1 10^3/ul (1.6-7.5); NEUTROPHILS % 76.6 % (39.0-77.0); PLATELET COUNT 325 10^3/UL (140-415); RED CELL DISTRIBUTION WIDTH 18.9 % (11.5-14.5)
[2018-03-08 16:40] LABS: ALANINE AMINOTRANSFERASE 19 IU/L (13-69); ALBUMIN 3.7 g/dl (3.3-4.9); ALBUMIN/GLOBULIN RATIO 0.97; ALKALINE PHOSPHATASE 150 IU/L (42-121); ANION GAP 16 (8-16); ASPARTATE AMINO TRANSFERASE 18 IU/L (15-46); BILIRUBIN,INDIRECT 0.3 mg/dl (0-1.1); BILIRUBIN,TOTAL 0.3 mg/dl (0.2-1.3); BLOOD UREA NITROGEN 18 mg/dl (7-20); CALCIUM 8.9 mg/dl (8.4-10.2); CARBON DIOXIDE 31 mmol/L (21-31); CHLORIDE 97 mmol/L (97-110); CREATININE 1.05 mg/dl (0.61-1.24); GLUCOSE 179 mg/dl (70-220); LIPASE 19 U/L (23-300); POTASSIUM 3.2 mmol/L (3.5-5.1); SODIUM 141 mmol/L (135-144); TOTAL PROTEIN 7.5 g/dl (6.1-8.1)
[2018-03-08] MEDS: POTASSIUM CHLORIDE (SR) 20 MEQ TAB PO ×2 (18:13→18:16)
[2018-03-08] MEDS ORDERED: NACL 0.9% 3 ML SYG IV (18:30)
[2018-03-08] MEDS ORDERED: DEXTROSE 50% 50 ML SYRINGE IV ×2 (19:00)
[2018-03-08] MEDS ORDERED: GLUCOSE GEL 15 GRAM TUBE PO ×2 (19:00)
[2018-03-08] MEDS ORDERED: GLUCAGON 1 MG INJ IM (19:00)
[2018-03-08] MEDS ORDERED: GLUCOSE GEL 15 GRAM TUBE BUCCAL (19:00)
[2018-03-08] MEDS: CEFTRIAXONE 1 GM/50 ML (PMX) 50 ML IVPB (19:29)
[2018-03-08 20:19] LABS: OCCULT BLOOD STOOL NEGATIVE (NEGATIVE)
[2018-03-08] MEDS: VANCOMYCIN HCL 250 MG/5ML POSYG PO (20:20)
[2018-03-08] MEDS: morphine (ER) 15 MG TAB PO (20:20)
[2018-03-08] MEDS: TERAZOSIN 1 MG CAP PO (21:00)
[2018-03-08] MEDS: INSULIN ASPART [NOVOLOG] 3 ML PEN SC (21:00)
[2018-03-08] MEDS ORDERED: METHADONE XX (22:00)
[2018-03-08] MEDS ORDERED: ONDANSETRON 4 MG TAB PO (22:00)
[2018-03-08] MEDS: TAMSULOSIN (SR) 0.4 MG CAP PO (22:23)
[2018-03-08] MEDS: GABAPENTIN 300 MG CAP PO (22:24)
[2018-03-08] MEDS: HEPARIN 5,000 UNIT/0.5 ML VIAL SC (22:31)
[2018-03-08] MEDS: HYDROmorphONE 2 MG TAB PO (22:39)
[2018-03-09] MEDS: VANCOMYCIN HCL 250 MG/5ML POSYG PO ×3 (01:47→12:11)
[2018-03-09] MEDS: ACCU-CHEK XX (02:00)
[2018-03-09 05:52] LABS: ADD MAN DIFF? NO
[2018-03-09 05:56] LABS: BASOPHIL # 0.1 10^3/ul (0.0-0.1); BASOPHILS % 1.1 % (0.0-2.0); EOSINOPHILS # 0.2 10^3/ul (0.0-0.5); EOSINOPHILS % 2.1 % (0.0-7.0); HEMATOCRIT 29.1 % (42.0-52.0); HEMOGLOBIN 9.2 g/dl (14.0-18.0); LYMPHOCYTES % 10.1 % (15.0-51.0); MEAN CORPUSCULAR HEMOGLOBIN 27.8 pg (29.0-33.0); MEAN CORPUSCULAR HGB CONC 31.6 g/dl (32.0-37.0); MEAN CORPUSCULAR VOLUME 87.9 fl (82.0-101.0); MEAN PLATELET VOLUME 10.1 fl (7.4-10.4); MONOCYTE # 0.9 10^3/ul (0.3-0.9); MONOCYTES % 8.5 % (0.0-11.0); NEUTROPHIL # 7.5 10^3/ul (1.6-7.5); NEUTROPHILS % 75.6 % (39.0-77.0); NUCLEATED RED BLOOD CELLS% 0.3 /100WBC (0.0-0.0); PLATELET COUNT 301 10^3/UL (140-415); RED BLOOD COUNT 3.31 10^6/ul (4.70-6.10); RED CELL DISTRIBUTION WIDTH 18.7 % (11.5-14.5)
[2018-03-09 06:26] LABS: ANION GAP 12 (8-16); BLOOD UREA NITROGEN 19 mg/dl (7-20); CALCIUM 8.8 mg/dl (8.4-10.2); CARBON DIOXIDE 32 mmol/L (21-31); CHLORIDE 100 mmol/L (97-110); CREATININE 1.18 mg/dl (0.61-1.24); GLUCOSE 151 mg/dl (70-220); POTASSIUM 3.6 mmol/L (3.5-5.1); SODIUM 140 mmol/L (135-144)
[2018-03-09] MEDS: HEPARIN 5,000 UNIT/0.5 ML VIAL SC ×2 (06:43→14:44)
[2018-03-09] MEDS: PANTOPRAZOLE (EC) 40 MG TAB PO (07:56)
[2018-03-09] MEDS: HYDROmorphONE 2 MG TAB PO (07:57)
[2018-03-09] MEDS: INSULIN ASPART [NOVOLOG] 3 ML PEN SC ×3 (08:15→17:39)
[2018-03-09] MEDS ORDERED: NON-FORMULARY/PATIENT OWN MED (Isosorbide Mononitrate* 60 MG) PO (09:00)
[2018-03-09] MEDS: CLOPIDOGREL 75 MG TAB PO (09:38)
[2018-03-09] MEDS: FUROSEMIDE 40 MG TAB PO (09:38)
[2018-03-09] MEDS: FINASTERIDE 5 MG TAB PO (09:39)
[2018-03-09] MEDS: ISOSORBIDE MONONITRATE(SR)60 MG TAB PO (09:39)
[2018-03-09] MEDS: ASPIRIN 81 MG TAB PO (09:40)
[2018-03-09] MEDS: GABAPENTIN 300 MG CAP PO ×2 (09:41→12:12)
[2018-03-09] MEDS: ALLOPURINOL 100 MG TAB PO (09:42)
[2018-03-09] MEDS: DILTIAZEM (CD) 240 MG CAP PO (09:42)
[2018-03-09] MEDS: LACTOBACILLUS RHAMNOSUS CAP PO (14:40)
[2018-03-09] MEDS: COLLAGENASE 5 GM (UD JAR) TOP (16:21)
[2018-03-09] MEDS: LOPERAMIDE 2 MG CAP PO (16:22)
[2018-03-09] MEDS: CEFTRIAXONE 1 GM/50 ML (PMX) 50 ML IVPB (17:39)
[2018-03-09] MEDS: ACETAMINOPHEN 325 MG TAB PO (18:10)
== END 2018-03-09 20:05 | disposition home or self-care (01) | DRG 690 ==
LOC: E/R 14:49 → MS2 18:18
PROVIDERS: Hospitalist
DX: N39.0 Urinary tract infection, site not specified (principal); M48.54XA Collapsed vertebra, not elsewhere classified, thoracic region, initial encounter for fracture; I13.0 Hypertensive heart and chronic kidney disease with heart failure and stage 1 through stage 4 chronic kidney disease, or unspecified chronic kidney disease; I50.32 Chronic diastolic (congestive) heart failure; C64.9 Malignant neoplasm of unspecified kidney, except renal pelvis; R19.7 Diarrhea, unspecified; E87.6 Hypokalemia; D64.9 Anemia, unspecified; N18.9 Chronic kidney disease, unspecified; E11.22 Type 2 diabetes mellitus with diabetic chronic kidney disease; Z79.82 Long term (current) use of aspirin; I25.10 Atherosclerotic heart disease of native coronary artery without angina pectoris; N40.0 Benign prostatic hyperplasia without lower urinary tract symptoms; I49.9 Cardiac arrhythmia, unspecified
CPT/HCPCS: 36415; 74176; 80048; 80053; 81003; 82270; 82962; 83690; 85025; 87045; 87075; 87081; 87086; 96365; 99285-25

== ENCOUNTER 2018-05-15 11:10 | Inpatient (IN) | payer OTHER ==
[2018-05-15] MEDS ORDERED: NACL 0.9% 3 ML SYG IV (12:30)
[2018-05-15] MEDS ORDERED: GLUCOSE GEL 15 GRAM TUBE PO ×2 (13:00)
[2018-05-15] MEDS ORDERED: HYDROmorphONE 2 MG TAB PO (13:00)
[2018-05-15] MEDS ORDERED: DEXTROSE 50% 50 ML SYRINGE IV ×2 (13:00)
[2018-05-15] MEDS ORDERED: GLUCOSE GEL 15 GRAM TUBE BUCCAL (13:00)
[2018-05-15] MEDS ORDERED: GLUCAGON 1 MG INJ IM (13:00)
[2018-05-15] MEDS ORDERED: PENDING SANTYL ORDER FOR WOUND CARE XX (13:00)
[2018-05-15] MEDS: ERTAPENEM SODIUM 1 GM in SOD CHLORIDE 0.9% 100 ML IVPB (13:30)
[2018-05-15 13:57] LABS: LACTIC ACID 1.6 mmol/L (0.5-2.0)
[2018-05-15] MEDS: HEPARIN 5,000 UNIT/0.5 ML VIAL SC ×2 (14:00→21:24)
[2018-05-15] MEDS: HYDROmorphONE 2 MG TAB PO (15:24)
[2018-05-15] MEDS: ONDANSETRON 4 MG TAB PO (17:22)
[2018-05-15] MEDS: INSULIN ASPART [NOVOLOG] 3 ML PEN SC ×2 (17:25→20:44)
[2018-05-15] MEDS: LINEZOLID 600 MG/D5W (PMX) 300 ML IVPB ×2 (18:09→20:51)
[2018-05-15] MEDS: TAMSULOSIN (SR) 0.4 MG CAP PO (20:51)
[2018-05-15] MEDS: ATORVASTATIN 20 MG TAB PO (20:51)
[2018-05-16] MEDS: ACCU-CHEK XX (01:52)
[2018-05-16] MEDS: HYDROmorphONE 2 MG TAB PO ×2 (03:43→14:03)
[2018-05-16] MEDS: ONDANSETRON 4 MG TAB PO ×2 (03:48→13:31)
[2018-05-16 05:46] LABS: WHITE BLOOD COUNT 9.5 10^3/ul (4.8-10.8)
[2018-05-16 05:46] LABS: ABNORMAL IP MESSAGE 1; HEMATOCRIT 25.4 % (42.0-52.0); HEMOGLOBIN 7.8 g/dl (14.0-18.0); MEAN CORPUSCULAR HEMOGLOBIN 27.3 pg (29.0-33.0); MEAN CORPUSCULAR HGB CONC 30.7 g/dl (32.0-37.0); MEAN CORPUSCULAR VOLUME 88.8 fl (82.0-101.0); PLATELET COUNT 228 10^3/UL (140-415); POSITIVE DIFF @See below; RED BLOOD COUNT 2.86 10^6/ul (4.70-6.10); RED CELL DISTRIBUTION WIDTH 17.1 % (11.5-14.5)
[2018-05-16] MEDS: HEPARIN 5,000 UNIT/0.5 ML VIAL SC ×3 (05:46→20:42)
[2018-05-16 05:56] LABS: ADD MAN DIFF? YES
[2018-05-16 06:08] LABS: ANION GAP 7 (8-16); BLOOD UREA NITROGEN 12 mg/dl (7-20); CARBON DIOXIDE 33 mmol/L (21-31); CHLORIDE 98 mmol/L (97-110); CREATININE 0.83 mg/dl (0.61-1.24); GLUCOSE 116 mg/dl (70-220); MAGNESIUM 1.6 mg/dl (1.7-2.5); POTASSIUM 3.4 mmol/L (3.5-5.1); SODIUM 135 mmol/L (135-144)
[2018-05-16 07:41] LABS: ANISOCYTOSIS 1+ (0-0); BAND NEUTROPHILS #M 4.1 10^3/ul (0.0-0.6); BAND NEUTROPHILS % (M) 44 % (0-4); EOSINOPHILS % (M) 1 % (0-7); LYMPHOCYTES #M 0.5 10^3/ul (0.8-2.9); LYMPHOCYTES % (M) 6 % (15-51); MONOCYTE #M 0.6 10^3/ul (0.3-0.9); MONOCYTES % (M) 7 % (0-11); PLATELET ESTIMATE NORMAL; POLYCHROMASIA 1+ (0-0); SEG NEUT #M 4.4 10^3/ul (1.6-7.5); SEGMENTED NEUTROPHILS (M) % 42 % (39-77); SMUDGE%M 31 % (0-0)
[2018-05-16] MEDS: INSULIN ASPART [NOVOLOG] 3 ML PEN SC ×4 (08:00→21:00)
[2018-05-16] MEDS: LINEZOLID 600 MG/D5W (PMX) 300 ML IVPB ×2 (08:03→21:00)
[2018-05-16] MEDS: POTASSIUM CHLORIDE (SR) 20 MEQ TAB PO (08:03)
[2018-05-16] MEDS: CLOPIDOGREL 75 MG TAB PO (08:21)
[2018-05-16] MEDS: ALLOPURINOL 100 MG TAB PO (08:22)
[2018-05-16] MEDS: FINASTERIDE 5 MG TAB PO (08:22)
[2018-05-16] MEDS ORDERED: ASPIRIN 81 MG TAB PO (09:00)
[2018-05-16] MEDS: MAGNESIUM SULFATE 2 GM/50 ML 50 ML IVPB (09:37)
[2018-05-16] MEDS: MEGESTROL 40 MG TAB PO (14:03)
[2018-05-16] MEDS: ZINC SULFATE 220 MG CAP PO (14:04)
[2018-05-16] MEDS: MULTIVITAMINS THERAPEUTIC TAB PO (14:04)
[2018-05-16] MEDS: ERTAPENEM SODIUM 1 GM in SOD CHLORIDE 0.9% 100 ML IVPB (14:09)
[2018-05-16] MEDS: LIDOCAINE 1% (MPF) 5 ML VIAL SC (14:25)
[2018-05-16] MEDS: ATORVASTATIN 20 MG TAB PO (20:40)
[2018-05-16] MEDS: ASCORBIC ACID 250 MG TAB PO (20:41)
[2018-05-16] MEDS: TAMSULOSIN (SR) 0.4 MG CAP PO (20:41)
[2018-05-17] MEDS: ACCU-CHEK XX (02:08)
[2018-05-17 05:58] LABS: ADD MAN DIFF? NO
[2018-05-17 05:59] LABS: WHITE BLOOD COUNT 10.1 10^3/ul (4.8-10.8)
[2018-05-17 05:59] LABS: BASOPHILS % 0.2 % (0.0-2.0); EOSINOPHILS # 0.2 10^3/ul (0.0-0.5); EOSINOPHILS % 1.7 % (0.0-7.0); HEMATOCRIT 25.3 % (42.0-52.0); HEMOGLOBIN 7.8 g/dl (14.0-18.0); LYMPHOCYTES # 0.7 10^3/ul (0.8-2.9); LYMPHOCYTES % 6.5 % (15.0-51.0); MEAN CORPUSCULAR HEMOGLOBIN 27.7 pg (29.0-33.0); MEAN CORPUSCULAR HGB CONC 30.8 g/dl (32.0-37.0); MEAN CORPUSCULAR VOLUME 89.7 fl (82.0-101.0); MONOCYTE # 0.7 10^3/ul (0.3-0.9); NEUTROPHIL # 8.4 10^3/ul (1.6-7.5); NEUTROPHILS % 83.4 % (39.0-77.0); PLATELET COUNT 230 10^3/UL (140-415); POSITIVE DIFF @See below; RED BLOOD COUNT 2.82 10^6/ul (4.70-6.10); RED CELL DISTRIBUTION WIDTH 16.8 % (11.5-14.5)
[2018-05-17 06:37] LABS: ANION GAP 9 (8-16); BLOOD UREA NITROGEN 10 mg/dl (7-20); CALCIUM 8.7 mg/dl (8.4-10.2); CARBON DIOXIDE 31 mmol/L (21-31); CHLORIDE 99 mmol/L (97-110); CREATININE 0.68 mg/dl (0.61-1.24); GLUCOSE 77 mg/dl (70-220); POTASSIUM 3.7 mmol/L (3.5-5.1); SODIUM 135 mmol/L (135-144)
[2018-05-17] MEDS: HEPARIN 5,000 UNIT/0.5 ML VIAL SC ×3 (06:37→20:50)
[2018-05-17 07:17] LABS: MAGNESIUM 1.8 mg/dl (1.7-2.5)
[2018-05-17] MEDS: INSULIN ASPART [NOVOLOG] 3 ML PEN SC ×4 (08:00→20:36)
[2018-05-17] MEDS: MEGESTROL 40 MG TAB PO (08:43)
[2018-05-17] MEDS: ONDANSETRON 4 MG TAB PO ×3 (08:43→17:44)
[2018-05-17] MEDS ORDERED: PROCHLORPERAZINE 10 MG INJ IV (10:30)
[2018-05-17] MEDS: ALLOPURINOL 100 MG TAB PO (12:17)
[2018-05-17] MEDS: FINASTERIDE 5 MG TAB PO (12:17)
[2018-05-17] MEDS: CLOPIDOGREL 75 MG TAB PO (12:17)
[2018-05-17] MEDS: ZINC SULFATE 220 MG CAP PO (12:17)
[2018-05-17] MEDS: MULTIVITAMINS THERAPEUTIC TAB PO (12:18)
[2018-05-17] MEDS: ASCORBIC ACID 250 MG TAB PO ×2 (12:18→20:36)
[2018-05-17] MEDS: HYDROmorphONE 2 MG TAB PO (12:22)
[2018-05-17] MEDS: ERTAPENEM SODIUM 1 GM in SOD CHLORIDE 0.9% 100 ML IVPB (14:50)
[2018-05-17] MEDS: LINEZOLID 600 MG/D5W (PMX) 300 ML IVPB ×2 (15:07→20:36)
[2018-05-17] MEDS: TAMSULOSIN (SR) 0.4 MG CAP PO (20:36)
[2018-05-17] MEDS: ATORVASTATIN 20 MG TAB PO (20:36)
[2018-05-18] MEDS: ACCU-CHEK XX (02:00)
[2018-05-18] MEDS: HEPARIN 5,000 UNIT/0.5 ML VIAL SC ×3 (06:48→21:35)
[2018-05-18] MEDS: INSULIN ASPART [NOVOLOG] 3 ML PEN SC ×4 (08:00→21:00)
[2018-05-18] MEDS: LINEZOLID 600 MG/D5W (PMX) 300 ML IVPB (08:45)
[2018-05-18] MEDS: ONDANSETRON 4 MG TAB PO (08:45)
[2018-05-18] MEDS: HYDROmorphONE 2 MG TAB PO (08:47)
[2018-05-18] MEDS: ALLOPURINOL 100 MG TAB PO (08:47)
[2018-05-18] MEDS: ZINC SULFATE 220 MG CAP PO (08:47)
[2018-05-18] MEDS: MULTIVITAMINS THERAPEUTIC TAB PO (08:47)
[2018-05-18] MEDS: ASCORBIC ACID 250 MG TAB PO ×2 (08:48→21:17)
[2018-05-18] MEDS: MEGESTROL 40 MG TAB PO (08:48)
[2018-05-18] MEDS: CLOPIDOGREL 75 MG TAB PO (08:48)
[2018-05-18] MEDS: FINASTERIDE 5 MG TAB PO (08:49)
[2018-05-18] MEDS: ONDANSETRON 4 MG INJ IV (11:37)
[2018-05-18] MEDS: CEFTAZIDIME 2GM/50 ML (PMX) 50 ML IVPB ×2 (14:14→21:17)
[2018-05-18] MEDS: SOD CHLORIDE 0.9% 1,000 ML IV ×2 (14:14→23:34)
[2018-05-18] MEDS: HYDROmorphONE 1 MG/ML SYG IV ×2 (15:03→21:18)
[2018-05-18] MEDS: ZINC OXIDE 13% (DESITIN) CREAM 2 OZ TUBE TOP (17:00)
[2018-05-18] MEDS: TAMSULOSIN (SR) 0.4 MG CAP PO (21:17)
[2018-05-18] MEDS: ATORVASTATIN 20 MG TAB PO (21:17)
[2018-05-19] MEDS: ACCU-CHEK XX (02:00)
[2018-05-19] MEDS: HYDROmorphONE 1 MG/ML SYG IV ×3 (04:50→14:26)
[2018-05-19] MEDS: CEFTAZIDIME 2GM/50 ML (PMX) 50 ML IVPB ×2 (05:51→13:45)
[2018-05-19] MEDS: HEPARIN 5,000 UNIT/0.5 ML VIAL SC ×2 (05:55→14:18)
[2018-05-19] MEDS: INSULIN ASPART [NOVOLOG] 3 ML PEN SC ×2 (07:37→12:29)
[2018-05-19] MEDS: ZINC SULFATE 220 MG CAP PO (08:48)
[2018-05-19] MEDS: MEGESTROL 40 MG TAB PO (08:48)
[2018-05-19] MEDS: FINASTERIDE 5 MG TAB PO (08:48)
[2018-05-19] MEDS: ALLOPURINOL 100 MG TAB PO (08:48)
[2018-05-19] MEDS: MULTIVITAMINS THERAPEUTIC TAB PO (08:48)
[2018-05-19] MEDS: ONDANSETRON 4 MG INJ IV (08:48)
[2018-05-19] MEDS: ASCORBIC ACID 250 MG TAB PO (08:48)
[2018-05-19] MEDS: CLOPIDOGREL 75 MG TAB PO (08:48)
[2018-05-19] MEDS: BALSAM PERU/CASTOR OIL 60 GM TUBE TOP (09:00)
== END 2018-05-19 16:25 | disposition hospice, home (50) | DRG 872 ==
LOC: 6WM 11:10
PROVIDERS: Internal Medicine
PROC: 02HV33Z Insertion of Infusion Device into Superior Vena Cava, Percutaneous Approach (ICD-10-PCS; principal; 2018-05-17)
PROC: B54MZZA Ultrasonography of Right Upper Extremity Veins, Guidance (ICD-10-PCS; 2018-05-17)
DX: A41.9 Sepsis, unspecified organism (principal); N39.0 Urinary tract infection, site not specified; I13.0 Hypertensive heart and chronic kidney disease with heart failure and stage 1 through stage 4 chronic kidney disease, or unspecified chronic kidney disease; I50.32 Chronic diastolic (congestive) heart failure; C79.51 Secondary malignant neoplasm of bone; C78.00 Secondary malignant neoplasm of unspecified lung; E87.2 Acidosis; C64.9 Malignant neoplasm of unspecified kidney, except renal pelvis; Z66 Do not resuscitate; Z51.5 Encounter for palliative care; E11.22 Type 2 diabetes mellitus with diabetic chronic kidney disease; N18.9 Chronic kidney disease, unspecified; R65.20 Severe sepsis without septic shock; I25.10 Atherosclerotic heart disease of native coronary artery without angina pectoris; B96.5 Pseudomonas (aeruginosa) (mallei) (pseudomallei) as the cause of diseases classified elsewhere; Z74.01 Bed confinement status; N40.0 Benign prostatic hyperplasia without lower urinary tract symptoms; R33.9 Retention of urine, unspecified; Z92.3 Personal history of irradiation; Z87.891 Personal history of nicotine dependence
CPT/HCPCS: 36569; 71045; 76937; 80048; 82962; 83605; 83735; 85025; 87075